=== PATIENT | female | born 1990 | race Caucasian/White ===

== ENCOUNTER → 2017-04-20 | Outpatient (CLI) | payer OTHER | LOC: GENOP 01:05 | DX: O42.913 Preterm premature rupture of membranes, unspecified as to length of time between rupture and onset of labor, third trimester (principal); Z3A.32 32 weeks gestation of pregnancy | CPT/HCPCS: 51702; 96360; 96361; 96365; 96366; 96367; 96372; J0290; J0702; J3475; J7050; J7120 ==